=== PATIENT | female | born 1950 | race Caucasian/White ===

== ENCOUNTER 2016-06-28 11:04 | Inpatient (IN) | payer MEDICARE ==
[2016-06-28 11:18] VITALS: BMI 23.3
[2016-06-28] MEDS ORDERED: NS 1,000 ML IV ONE ×2 (11:19→12:10)
--- NOTE | 2016-06-28 11:25 | EDPRACDOC ---
- General Information Chief Complaint: Bleeding (Rectal &/or other) Stated Complaint: GI BLEED Time Seen by Provider: 06/28/16 11:19 Information Source: Patient Mode of Arrival: Car Home Medications: Home Medications Hum Insulin NPH/Reg Insulin Hm [Relion Novolin 70-30 Vial] 26 unit SQ BID Sertraline HCl [Zoloft] 150 mg PO DAILY 06/28/16 Simvastatin 40 mg PO DAILY 06/28/16 Allergies/Adverse Reactions: Allergies Allergy/AdvReac Type Severity Reaction Status Date / Time Penicillins Allergy Rash-Genera Verified 06/28/16 11:19 lized Sulfa (Sulfonamide Allergy Rash-Genera Verified 06/28/16 11:19 Antibiotics) lized - History of Present Illness Onset: TODAY HPI: PATIENT STATES SHE HAS BEEN PASSING DARK CLOTS RECTALLY SINCE THIS AM. GENERAL ABDOMINAL CRAMPING. NO FEVER. NEAR SYNCOPE. NAUSEA AND VOMITING. DENIES COFFEE GROUNDS Bleeding Duration: Reports: Since Onset Bleeding Description: Reports: After Bowel Movement Recent Use Of: Reports: None Relevant History: Reports: None Prehospital Care: Reports: IV Fluids Pain Severity: Moderate Amount of Blood: Reports: Tablespoon (s) Vomitus: Reports: None Stools: Reports: Other (GROSS BLOOD PER RECTUM) Associated Signs and Symptoms: Reports: Abdominal Pain, Faintness ED Past Medical History - History Reviewed Yes Nurses notes reviewed and agree except as marked Travel Outside of [place] in the Last 3 Months?: No - Patient Medical History Cardiac History: Reports: Hypercholesterolemia Systemic History: Reports: Diabetes Surgical History: Reports: Tonsillectomy/Adnoidectomy, Other (COMPLETE HYSTERECTOMY) - Social Medical History ETOH: None Substance Abuse: None Lives With: Family Lives In: Home EDM Review of Systems - Review of Systems ROS Negative Except as Marked: Yes All systems reviewed and were negative except as marked Constitutional: No Symptoms Reported. negative: Fever, Chills, Weakness, Fatigue, Loss of Appetite Eyes: No Symptoms Reported. negative: Redness, Blurred Vision, Double Vision, Discharge, Pain, Light Sensitive, Photophobia Ears: No Symptoms Reported. negative: Pain, Hearing Loss, Drainage, Ear Pulling Throat: No Symptoms Reported. negative: Pain, Swelling Nose: No Symptoms Reported. negative: Congestion, Bleeding, Discharge, Injection, Swelling, Deformity, Ecchymosis, Tender, Abrasion, Laceration Mouth: No Symptoms Reported. negative: Pain, Drooling Respiratory: No Symptoms Reported. negative: Cough, Brassy Cough, Barky Cough, Shortness of Breath, Wheezing, Hemoptysis Cardiovascular: No Symptoms Reported. negative: Chest Pain, Palpitations, Syncope, Edema, Orthopnea, PND, Skin Mottling, Cyanosis Gastrointestinal: Diarrhea, Pain, Other (BLOOD PER RECTUM). negative: Constipation, Formula Intolerance, Melena, Nausea, Vomiting Genitourinary: No Symptoms Reported. negative: Dysuria, Hematuria, Frequency, Discharge, Bleeding, Testicular Pain, Neurological: No Symptoms Reported. negative: Headache, Dizziness, Seizure, Numbness, Weakness, Speech Difficulty, Gait Difficulty Musculoskeletal: No Symptoms Reported. negative: Neck, Chestwall, Ribs, Back, Shoulder, Arm, Elbow, Forearm, Wrist, Hand, Pelvis, Hip, Femur, Knee, Leg, Ankle , Foot Integumentary: No Symptoms Reported. negative: Itching, Rash, Bruising, Wound Allergic/Immunologic: No Symptoms Reported. negative: Hives, Itching Hematologic: No Symptoms Reported. negative: Lymphadenopathy, Easy Bruising, Easy Bleeding Endocrine: No Symptoms Reported. negative: Weight Gain, Weight Loss Psychiatric: No Symptoms Reported. negative: Anxiety, Depression, Hallucinations, Insomnia, Suicidal - Physical Exam Constitutional: Alert (Awake), Distress (SEVERE) Oriented to: Time, Person, Place Last recorded Vital Signs: Last Vital Signs Temp 97.8 F 06/28/16 11:12 Pulse 108 06/28/16 11:12 Resp 18 06/28/16 11:12 BP 80/80 L 06/28/16 11:12 Pulse Ox 96 06/28/16 11:12 Oxygen Pulse Oxygen Saturation 96 O2 Device Room Air Oxygen Flow Rate Fraction of Inspired Oxygen ( FIO2) - HEENT Head: Normal ( normocephalic) Eye Exam: Pale Conjunctiva Oropharynx: Normal (Pharynx:Moist without exudate,Gums-no swelling) Tympanic Membrane: Normal ENT EAC: Normal TMJ: Normal Nose: No Symptoms Reported (septum midline) Neck: Normal (FROM, trachea at midline) - Respiratory/Cardiovascular Respiratory: Normal - CTA (BBS clear to auscultation without adventitious sounds ) Cardiovascular: Normal (RRR without murmur, gallop or rub) - GI Auscultation: Normal (NABS) Palpation: Normal (Soft,No rebound or guarding, non distended) Tenderness: Diffuse, Mild Alcazar's Sign: Negative Rectal Exam: Heme positive stool Stool: Gross Blood - Bladder: Normal - Musculoskeletal Back: Normal (Non-Tender) Extremities: Normal (Normal tone, Pulses 2+ No cyanosis or edema, FROM) - Integumentary Skin: Cool, Dry, Pale Lymphatics: Normal (no adenopathy) - Neurologic Memory Impaired: Normal Motor Function: Normal (Normal tone, Pulses 2+ No cyanosis or edema, FROM) Cranial Nerve: Normal (CN II-X11 intact sensation, strength 5/5) Cerebellar: Normal Mood Description: Normal Perception: Normal - Results 06/28/16 13:57 06/28/16 11:30 - EKG EKG #1 EKG Time: 11:31 -: Yes EKG interpreted by me Rate: bpm: 74 [place]: Normal Rhythm: NSR Block: None Hypertrophy: None ST: Normal - Departure Yes I personally saw and evaluated the patient. Disposition: Admit IP To This Hospital Condition: Fair Final Diagnosis: Acute blood loss anemia, Acute GI bleeding, Poorly controlled diabetes mellitus Hypotension Qualifiers: Hypotension type: orthostatic hypotension Qualified Code(s): I95.1 - Orthostatic hypotension Education/Counseling Given To: Patient Education/Counseling Given Regarding: Diagnosis, Treatment, Prognosis Referrals: Wan Peterson MD [Primary Care Provider] - One Week Decision to Admit Time: 14:32 Decision to admit date: 06/28/16 Decision to admit: from ED - Physician Consulted Hospitalist Time Called: 14:33 Provider Called: Arturo Catherine Time Technical Aid Returned Call: 14:33
[2016-06-28 11:39] LABS: AUTOMATED BASOPHIL 1.1 % (0-2); AUTOMATED EOSINOPHIL 0.6 % (0-5); AUTOMATED LYMPH 30.5 % (17-44); AUTOMATED MONOCYTE 6.6 % (3-10); AUTOMATED NEUTROPHIL 61.2 % (45-76); MPV 7.7 fL (7.4-10.4)
[2016-06-28 11:49] LABS: BLOOD UREA NITROGEN 20 MG/DL (7-17); CALCIUM 9.7 MG/DL (8.4-10.2); CALCULATED OSMOLALITY 281 MOs/Kg (270-290); CHLORIDE 104 mEq/L (98-107); CPK TOTAL WITH POSSIBLE MB 45 IU/L (30-134); SODIUM LEVEL 135 mEq/L (137-146); TOTAL PROTEIN 6.5 G/DL (6.3-8.2)
[2016-06-28 11:53] LABS: PARTIAL THROMB. TIME 20.9 SEC (22-35); PT-INR 1.1
--- NOTE | 2016-06-28 11:55 | DIRPT ---
CLINICAL DATA: Rectal bleeding, abdominal cramping, nausea, vomiting and syncope. EXAM: DG ABDOMEN ACUTE W/ 1V CHEST COMPARISON: None FINDINGS: Lungs show evidence of probable mild emphysematous disease. There is some scattered scarring at the lung bases. The heart size and mediastinal contours are normal. There is no evidence of pulmonary edema, consolidation, pneumothorax, nodule or pleural fluid. Moderate colonic stool, especially in the proximal colon. There are some scattered air-fluid levels which appear to be primarily in the colon. No evidence of small bowel dilatation. No evidence of free air. No abnormal calcifications. Bony structures show mild spondylosis of the lumbar spine. IMPRESSION: Moderate stool in the proximal colon. Scattered air-fluid levels in the colon may be consistent with enteritis. No evidence of small bowel obstruction or intraperitoneal free air. Electronically Signed By: Karthikeyan Pulido M.D. On: 06/28/2016 11:53
[2016-06-28 11:57] LABS: GLUCOSE 425 MG/DL (70-99)
[2016-06-28] MEDS ORDERED: Levofloxacin 750 mg/150 ml D5W 750 MG/150 ML RTU IV ONE (12:09)
[2016-06-28] MEDS ORDERED: Pharmacy Review for Metformin - IV Contrast Given SCH (13:00)
[2016-06-28] MEDS ORDERED: REGULAR INSULIN 100 UNITS/ML - 3 ML VIAL IV ONE (13:31)
--- NOTE | 2016-06-28 14:17 | DIRPT ---
CLINICAL DATA: Initial encounter for generalized abdominal pain and rectal bleeding today. EXAM: CT ABDOMEN AND PELVIS WITH CONTRAST TECHNIQUE: Multidetector CT imaging of the abdomen and pelvis was performed using the standard protocol following bolus administration of intravenous contrast. CONTRAST: Contrast 100 cc Isovue 370 COMPARISON: None. FINDINGS: Lower chest: Unremarkable. Hepatobiliary: Tiny hypervascular focus in the posterior hepatic dome is nonspecific. 6 mm hypo enhancing lesion is identified in the inferior right liver. There is no evidence for gallstones, gallbladder wall thickening, or pericholecystic fluid. No intrahepatic or extrahepatic biliary dilation. Pancreas: Main pancreatic duct is diffusely prominent but becomes distended up to 6 mm diameter in the head of the pancreas. No discrete pancreatic mass lesion by CT imaging. Spleen: No splenomegaly. No focal mass lesion. Adrenals/Urinary Tract: No adrenal nodule or mass. 11 mm well-defined low-density lesion right kidney is compatible with a tiny cyst. Left kidney unremarkable. No evidence for hydroureter. The urinary bladder appears normal for the degree of distention. Stomach/Bowel: Stomach is nondistended. No gastric wall thickening. No evidence of outlet obstruction. Duodenum is normally positioned as is the ligament of Treitz. No small bowel wall thickening. No small bowel dilatation. The terminal ileum is normal. The appendix is normal. No gross colonic mass. No colonic wall thickening. No substantial diverticular change. Vascular/Lymphatic: There is abdominal aortic atherosclerosis without aneurysm. There is no gastrohepatic or hepatoduodenal ligament lymphadenopathy. No intraperitoneal or retroperitoneal lymphadenopy. No pelvic sidewall lymphadenopathy. Reproductive: Uterus is surgically absent. There is no adnexal mass. Other: No intraperitoneal free fluid. Musculoskeletal: Bone windows reveal no worrisome lytic or sclerotic osseous lesions. IMPRESSION: 1. No acute findings in the abdomen or pelvis. Next number diffuse distention of the main pancreatic duct becomes dilated in the head of the pancreas. No evidence for pancreatic head mass and there is no associated biliary duct dilatation. MRI of the abdomen without and with contrast may prove helpful to further evaluate as clinically warranted. Alternatively, ERCP may provide additional insight. 2. Tiny hypervascular focus in the dome of the liver is nonspecific but is likely benign, especially in the absence of a cancer history. Electronically Signed By: Emil Teran M.D. On: 06/28/2016 14:15
--- NOTE | 2016-06-28 15:09 | HISTPHYS ---
- Chief Complaint Bright red blood per rectum - History of Present Illness Ms. Love is a pleasant 66-year-old white female with history of diabetes who presents emergency room with bright red blood per rectum. She says symptoms started earlier today she says she has never had any bleeding problems prior. Given the persistence the bleeding she decided to come the emergency room for evaluation. There is very minimal bleeding initially and her hemoglobin was 12.6. They elected to continue to monitor her in the emergency room and she started bleeding again. A repeat hemoglobin showed a drop down to 10.6. She denies abdominal pain. She states she had a colonoscopy 10 years ago which was normal and as noted above she has never had any other bleeding. She has not noted any black tarry stool. She does not take any blood thinners including aspirin, BC powders, or goody's powders. Given the persistence of her bleeding she will be admitted to the hospital for further evaluation management. - Medical History Cardiac History: Reports: Hypercholesterolemia Respiratory History: Reports: No Significant History GI/ History: Reports: No Significant History Musculoskeletal History: Reports: No Significant History Systemic History: Reports: Diabetes Neurological History: Reports: No Significant History Psychological History: Reports: No Significant History - Surgical History Reports: Tonsillectomy/Adnoidectomy, Other (COMPLETE HYSTERECTOMY) - Medictions/Allergies Allergies Penicillins Allergy (Verified 06/28/16 11:19) Rash-Generalized Sulfa (Sulfonamide Antibiotics) Allergy (Verified 06/28/16 11:19) Rash-Generalized Current Medication List: Reviewed Home Medications Hum Insulin NPH/Reg Insulin Hm [Relion Novolin 70-30 Vial] 26 unit SQ BID Sertraline HCl [Zoloft] 150 mg PO DAILY 06/28/16 Simvastatin 40 mg PO DAILY 06/28/16 - Family History Reports: Hypertension, Diabetes, Cardiac Disorders - Social History Lives: Alone Smoking Status: Heavy tobacco smoker (5 or more cigarettes/day or daily pipe/ cigar) Social History: Denies: Alcohol Use - Review of Systems Yes All systems reviewed and were negative except as marked Constitutional: No Symptoms Reported. negative: Fever, Chills, Weakness, Fatigue, Loss of Appetite - Eyes No Symptoms Reported. negative: Blurred Vision, Double Vision, Discharge, Pain , Photophobia - Ears No Symptoms Reported. negative: Drainage, Hearing Loss, Pain - Nose No Symptoms Reported. negative: Abrasion, Bleeding, Congestion - Mouth Mouth: No Symptoms Reported. negative: Pain, Drooling, Denture - Throat/Neck No Symptoms Reported. negative: Pain, Swelling, Hoarseness, Snoring, Thyroid enlargement - Respiratory No Symptoms Reported. negative: Barky Cough, Brassy Cough, Shortness of Breath , Wheezing, Sputum - Cardiovascular No Symptoms Reported. negative: Chest Pain, Orthopnea, Palpitations - Gastrointestinal Gastrointestinal: Hematochezia. negative: Nausea, Vomiting, Abdominal Pain, Diarrhea, Melena - Genitourinary Genitourinary: No Symptoms Reported. negative: Bleeding, Dysuria, Discharge - Neurological No Symptoms Reported. negative: Dizziness, Gait Difficulty, Speech Difficulty, Weakness, Vertigo - Musculoskeletal Musculoskeletal:: No Symptoms Reported. negative: Chronic low back pain, Arthritis, Bursitis, Stiffness, Gout - Integumentary No Symptoms Reported. negative: Bruising, Rash, Wound - Allergic/Immunologic No Symptoms Reported. negative: Hives, Itching - Hematologic Easy Bleeding - Endocrine No Symptoms Reported. negative: Weight Gain, Weight Loss, Excessive Thirst, Excessive Hunger, Heat Intolerance, Cold Intolerance - Psychiatric No Symptoms Reported. negative: Anxiety, Hallucinations - Physical Exam Constitutional: No apparent distress, Alert (Awake), Well nourished, Well appearing Oriented to: Time, Person, Place Exam: Last Vital Signs Temp 97.8 F 06/28/16 11:12 Pulse 76 06/28/16 14:52 Resp 18 06/28/16 13:30 BP 125/63 06/28/16 14:52 Pulse Ox 95 06/28/16 14:52 Intake & Output 06/27/16 06/28/16 06/28/16 23:59 07:59 15:59 Patient's weight 67.585 kg - HEENT Head: Normal ( normocephalic) Eye: Normal Oropharynx: Normal (Pharynx:Moist without exudate,Gums-no swelling) Tympanic Membrane: Normal ENT EAC: Normal TMJ: Normal Nose: No Symptoms Reported (septum midline) - Respiratory/Cardiovascular Respiratory: Normal - CTA (BBS clear to auscultation without adventitious sounds ) Cardiovascular: Normal - GI Auscultation: Normal (NABS) Palpation: Normal (Soft,No rebound or guarding, non distended) Tenderness: Mild, LLQ Rectal Exam: Heme positive stool Stool: Gross Blood - Musculoskeletal Back: Normal (Non-Tender). negative: Abrasion Extremities: Normal (Normal tone, Pulses 2+ No cyanosis or edema, FROM), Femoral Pulse, Pedal Pulse. negative: Calf Tenderness, Edema, Pedal Edema - Integumentary Skin: Warm, Cool, Dry, Pale Lymphatics: Normal (no adenopathy) - Neurologic Memory Impaired: Normal Motor Function: Normal Cranial Nerve: Normal Cerebellar: Normal Mood Description: Normal Thought: Coherent Perception: Normal - Focused CV Perfusion Exam Vital Signs: Last Vital Signs Temp 97.8 F 06/28/16 11:12 Pulse 76 06/28/16 14:52 Resp 18 06/28/16 13:30 BP 125/63 06/28/16 14:52 Pulse Ox 95 06/28/16 14:52 - Lab Results Laboratory Results - last 24 hr 06/28/16 06/28/16 06/28/16 11:30 11:30 11:30 WBC 9.9 RBC 4.34 Hgb 12.6 Hct 37.9 MCV 88 MCH 29.1 MCHC 33.3 RDW 13.9 Plt Count 373 MPV 7.7 Neut % (Auto) 61.2 Lymph % (Auto) 30.5 [place] % (Auto) 6.6 Eos % (Auto) 0.6 Baso % (Auto) 1.1 Absolute Neuts (auto) 6.04 Absolute Lymphs (auto) 2.97 PT 11.0 INR 1.1 APTT 20.9 L Sodium 135 L Potassium 4.6 Chloride 104 Carbon Dioxide 21 L Anion Gap 15 BUN 20 H Creatinine 0.80 Estimated GFR (MDRD) > 60 Glucose 425 H* Calculated Osmolality 281 Calcium 9.7 Total Bilirubin 0.5 AST 14 ALT 25 Alkaline Phosphatase 83 Creatine Kinase 45 Troponin I < 0.01 Total Protein 6.5 Albumin 4.0 Blood Type Antibody Screen 06/28/16 06/28/16 11:30 13:57 WBC RBC Hgb 10.6 L D Hct 31.7 L MCV MCH MCHC RDW Plt Count MPV Neut % (Auto) Lymph % (Auto) [place] % (Auto) Eos % (Auto) Baso % (Auto) Absolute Neuts (auto) Absolute Lymphs (auto) PT INR APTT Sodium Potassium Chloride Carbon Dioxide Anion Gap BUN Creatinine Estimated GFR (MDRD) Glucose Calculated Osmolality Calcium Total Bilirubin AST ALT Alkaline Phosphatase Creatine Kinase Troponin I Total Protein Albumin Blood Type O POSITIVE Antibody Screen Negative - Assessment (1) Acute GI bleeding K92.2 - GASTROINTESTINAL HEMORRHAGE, UNSPECIFIED Acute Present on Admission: Yes Moderate. Suspect diverticular in nature likely will stop on its own. She is not on any anticoagulants. Continue to follow H&H and transfuse if needed. Will have GI see in consultation. If hemoglobin stabilizes and bleeding stops likely can do evaluation as outpatient (2) Acute blood loss anemia D62 - ACUTE POSTHEMORRHAGIC ANEMIA Acute Present on Admission: Yes Mild so far but suspect will drift down further. No need for transfusion as yet but will do frequent H&Hs and monitor. (3) Hypotension I95.9 - HYPOTENSION, UNSPECIFIED Acute Present on Admission: Yes Qualifiers: Hypotension type: orthostatic hypotension Qualified Code(s): I95.1 - Orthostatic hypotension This has improved with IV hydration the emergency room. Likely vagal response due to anemia and bleeding. (4) Poorly controlled diabetes mellitus E11.65 - TYPE 2 DIABETES MELLITUS WITH HYPERGLYCEMIA Acute Present on Admission: Yes Blood sugars are significantly elevated here in the emergency room. Continue insulin and titrate as needed. Moderate dose sliding scale. Stressed dietary compliance (5) Depression F32.9 - MAJOR DEPRESSIVE DISORDER, SINGLE EPISODE, UNSPECIFIED Acute Present on Admission: Yes Qualifiers: Depression Type: unspecified Qualified Code(s): F32.9 - Major depressive disorder, single episode, unspecified Chronic. Continue home medications. Case Care Discussed with: Patient, Family
[2016-06-28] MEDS ORDERED: MAGNESIUM HYDROXIDE 30 ML BOTTLE PO PRN (15:10)
[2016-06-28] MEDS ORDERED: Docusate Sodium 100 MG CAP PO PRN (15:10)
[2016-06-28] MEDS ORDERED: ONDANSETRON HCL 4 MG/2 ML VIAL IV PRN (15:10)
[2016-06-28] MEDS ORDERED: GLUCAGON 1 MG VIAL SQ PRN (15:10)
[2016-06-28] MEDS ORDERED: ACETAMINOPHEN 325 MG/TAB TABLET PO PRN (15:10)
[2016-06-28] MEDS ORDERED: GLUCOSE (ORAL GEL) 15 GM TUBE PO PRN (15:10)
[2016-06-28] MEDS ORDERED: INSULIN REGULAR SQ SCH (16:00)
[2016-06-28] MEDS ORDERED: INSULIN ISOPHANE SQ SCH (16:00)
[2016-06-28] MEDS: NS/KCl 20 mEq 1,000 ML IV SCH (16:22)
[2016-06-28] MEDS: NICOTINE 21 MG PATCH TOP SCH (16:22)
[2016-06-28] MEDS ORDERED: Vaccine Screening Complete SCH (17:00)
[2016-06-28] MEDS: INSULIN REGULAR SQ SCH (17:42)
[2016-06-28] MEDS: INSULIN ISOPHANE SQ SCH (17:42)
[2016-06-28] MEDS: REGULAR INSULIN 100 UNITS/ML - 3 ML VIAL SQ SCH ×2 (17:47→21:09)
[2016-06-28] MEDS ORDERED: REG INSULIN SQ SCH (21:00)
[2016-06-28] MEDS ORDERED: [UNRECOGNIZED DRUG - OTHER] SQ SCH (21:00)
[2016-06-28] MEDS ORDERED: HUM INSULIN NPH SQ SCH (21:00)
[2016-06-28] MEDS: DEXTROSE 25 GM/50 ML PFS IV PRN (22:46)
[2016-06-29] MEDS: NS/KCl 20 mEq 1,000 ML IV SCH ×3 (01:00→20:31)
[2016-06-29 06:19] LABS: MPV 7.9 fL (7.4-10.4)
[2016-06-29] MEDS: INSULIN ISOPHANE SQ SCH ×3 (06:24→17:49)
[2016-06-29] MEDS: INSULIN REGULAR SQ SCH ×3 (06:24→17:49)
[2016-06-29] MEDS: REGULAR INSULIN 100 UNITS/ML - 3 ML VIAL SQ SCH ×4 (06:24→20:53)
[2016-06-29 06:43] LABS: BLOOD UREA NITROGEN 9 MG/DL (7-17); CALCIUM 9.3 MG/DL (8.4-10.2); CALCULATED OSMOLALITY 272 MOs/Kg (270-290); CHLORIDE 108 mEq/L (98-107); GLUCOSE 90 MG/DL (70-99); SODIUM LEVEL 142 mEq/L (137-146)
[2016-06-29] MEDS: SERTRALINE HCL 100 MG TAB PO SCH (09:16)
--- NOTE | 2016-06-29 13:09 | PCM.CONSGI ---
Consult Date: 06/29/16 Consult Reason: GI Bleed - History of Present Illness 66-year-old white female with painless hematochezia. This was sudden in onset and started morning of admission. Her hemoglobin was 12.6. They elected to continue to monitor her in the emergency room and she started bleeding again. A repeat hemoglobin showed a drop down to 10.6. She denies abdominal pain. She states she had a colonoscopy 10 years ago which was normal and as noted above she has never had any other bleeding. She has not noted any black tarry stool. She does not take any blood thinners including aspirin, BC powders, or goody's powders. She has been passing clots. Over the last 12 hours, she did not have any further bleeding. She underwent CT scan of the abdomen and pelvis which was unremarkable except for minimal pancreatic ductal dilatation. Patient wants to get the colonoscopy performed while she is inpatient. - Past Medical History Cardiac History: Reports: Hypercholesterolemia Systemic History: Reports: Diabetes Psychological History: Reports: Depression. Denies: Alcoholism - Surgical History Past Surgical History: Reports: T&A - Procedure History Procedure History: Reports: Colonoscopy (2005) - Family History Family History: Reports: Diabetes, Cardiac Disorders, Hypertension - Allergies Allergies Penicillins Allergy (Verified 06/28/16 11:19) Rash-Generalized Sulfa (Sulfonamide Antibiotics) Allergy (Verified 06/28/16 11:19) Rash-Generalized - Medications Home Medications Hum Insulin NPH/Reg Insulin Hm [Relion Novolin 70-30 Vial] 26 unit SQ BID Sertraline HCl [Zoloft] 150 mg PO DAILY 06/28/16 Simvastatin 40 mg PO DAILY 06/28/16 - Social History Lives: Alone Smoking Status: Heavy tobacco smoker (5 or more cigarettes/day or daily pipe/ cigar) Social History: Denies: Alcohol Use, Cocaine Use - Review of Systems Constitutional: Other (No night sweats.). negative: Chills, Fever, Weight loss (Recent) Mouth: negative: Pain Cardiovascular: negative: Chest Pain, Orthopnea, PND Gastrointestinal: Other (No jaundice, dark urine or pale stools.) Genitourinary: Other (Denies polyuria.). negative: Dysuria Neurological: Other (Denies loss of consciousness.). negative: Seizure Allergic/Immunologic: negative: Hives, Itching Hematologic: negative: Easy Bruising - Exam Vital Signs: Temperature: 97.8 F (06/29/16 06:00) HR: 77 (06/29/16 06:00) RR: 18 (06/29/16 06:00) BP: 148/68 (06/29/16 06:00) Pulse Ox: 96 (06/29/16 06:00) General: Alert, Oriented x3, Cooperative, No acute distress HEENT: Normal, Other (No Jaundice). negative: Pallor Cardiovascular: Normal S1, Normal S2, Other (No S3 or S4.). negative: No murmurs Gastrointestinal: Soft, Bowel Sounds (normal), Other (No ascites.). negative: Tender, Guarding, Rigid, Hepatosplenomegaly Extremities: Normal pulses. negative: Swelling, Edema Skin: Warm,Dry and Intact Neurological: Normal speech, Other (No focal neurologic deficits.) Psych/Mental Status: Normal Affect, Cooperative - Labs Result Diagrams: 06/29/16 06:00 06/29/16 06:00 Exam(s): [id number] CT/CT ABD-PELV W/IV CM CLINICAL DATA: Initial encounter for generalized abdominal pain and rectal bleeding today. EXAM: CT ABDOMEN AND PELVIS WITH CONTRAST TECHNIQUE: Multidetector CT imaging of the abdomen and pelvis was performed using the standard protocol following bolus administration of intravenous contrast. CONTRAST: Contrast 100 cc Isovue 370 COMPARISON: None. FINDINGS: Lower chest: Unremarkable. Hepatobiliary: Tiny hypervascular focus in the posterior hepatic dome is nonspecific. 6 mm hypo enhancing lesion is identified in the inferior right liver. There is no evidence for gallstones, gallbladder wall thickening, or pericholecystic fluid. No intrahepatic or extrahepatic biliary dilation. Pancreas: Main pancreatic duct is diffusely prominent but becomes distended up to 6 mm diameter in the head of the pancreas. No discrete pancreatic mass lesion by CT imaging. Spleen: No splenomegaly. No focal mass lesion. Adrenals/Urinary Tract: No adrenal nodule or mass. 11 mm well-defined low-density lesion right kidney is compatible with a tiny cyst. Left kidney unremarkable. No evidence for hydroureter. The urinary bladder appears normal for the degree of distention. Stomach/Bowel: Stomach is nondistended. No gastric wall thickening. No evidence of outlet obstruction. Duodenum is normally positioned as is the ligament of Treitz. No small bowel wall thickening. No small bowel dilatation. The terminal ileum is normal. The appendix is normal. No gross colonic mass. No colonic wall thickening. No substantial diverticular change. Vascular/Lymphatic: There is abdominal aortic atherosclerosis without aneurysm. There is no gastrohepatic or hepatoduodenal ligament lymphadenopathy. No intraperitoneal or retroperitoneal lymphadenopy. No pelvic sidewall lymphadenopathy. Reproductive: Uterus is surgically absent. There is no adnexal mass. Other: No intraperitoneal free fluid. Musculoskeletal: Bone windows reveal no worrisome lytic or sclerotic osseous lesions. IMPRESSION: 1. No acute findings in the abdomen or pelvis. Next number diffuse distention of the main pancreatic duct becomes dilated in the head of the pancreas. No evidence for pancreatic head mass and there is no associated biliary duct dilatation. MRI of the abdomen without and with contrast may prove helpful to further evaluate as clinically warranted. Alternatively, ERCP may provide additional insight. 2. Tiny hypervascular focus in the dome of the liver is nonspecific but is likely benign, especially in the absence of a cancer history. - Assessment and Plan (1) Abnormal CT of the abdomen Acute R93.5 - ABN FINDINGS ON DX IMAGING OF ABD REGIONS, INC RETROPERITON (2) Acute GI bleeding Acute K92.2 - GASTROINTESTINAL HEMORRHAGE, UNSPECIFIED (3) Depression Acute F32.9 - MAJOR DEPRESSIVE DISORDER, SINGLE EPISODE, UNSPECIFIED unspecified F32.9 - Major depressive disorder, single episode, unspecified (4) Poorly controlled diabetes mellitus Acute E11.65 - TYPE 2 DIABETES MELLITUS WITH HYPERGLYCEMIA Recommendations: 1. continue to monitor hemoglobin hematocrit periodically and transfuse if needed. 2. Proceed with colonoscopy in a.m.. I have discussed in detail the risks and benefits with the patient and patient's friends. They wish to proceed tomorrow. 3. CT scan of the abdomen and pelvis will be reviewed. 4. Check lipase, CA 19-9 and a CEA level 5. She may need an MRI of the pancreas or MRCP as an outpatient.
--- NOTE | 2016-06-29 15:58 | GENMEDPROG ---
Chief Complaint: Feels well with no complaints. No further bleeding. Hopes to go home today but waiting on Dr. Mancilla evaluation Notes Reviewed: Yes Events from last night noted and discussed with Clinical Staff Current Medication List: Reviewed Currently: Reports: Cough. Denies: Wheezing, KEYES, SOB - Physical Examination Vital Signs and I&O: Last Vital Signs Temp 98.3 F 06/29/16 14:03 Pulse 77 06/29/16 14:03 Resp 18 06/29/16 14:03 BP 149/66 06/29/16 14:03 Pulse Ox 95 06/29/16 14:03 Oxygen Pulse Oxygen Saturation 95 O2 Device Room Air Oxygen Flow Rate Fraction of Inspired Oxygen ( FIO2) Intake & Output 06/26/16 06/27/16 06/28/16 06/29/16 23:59 23:59 23:59 23:59 Intake Total 2407 2650 Output Total 2050 Balance 2407 600 Patient's weight 68.152 kg General: Alert, Oriented x3, Cooperative, No acute distress, Well appearing, Well nourished HEENT: Normal, PERRLA, EOMI, Anicteric Sclera Neck: Non-tender, Full range of motion, Normal Trachea alignment, Normal inspection. negative: JVD Lymphatics: Normal. negative: Adenopathy Respiratory: Normal - CTA Cardiovascular: Regular rate and rhythm, No Gallops,Rubs/Murmurs GI: Normal bowel sounds, Soft, Non tender, No hepatospenomegaly Extremities/Musculoskeletal: Normal pulses. negative: Swelling, Edema Skin: Warm,Dry and Intact, No rashes, No breakdown, No significant lesion Neurological: Normal speech, Strength at 5/5 X4 ext, Normal tone Psych/Mental Status: Appropriate, Normal Affect, Cooperative Lab/DI/Studies Reviewed: Laboratory Results - last 24 hr 06/28/16 06/28/16 06/28/16 17:41 20:12 22:38 WBC RBC Hgb 9.6 L Hct 28.9 L MCV MCH MCHC RDW Plt Count MPV Sodium Potassium Chloride Carbon Dioxide Anion Gap BUN Creatinine Estimated GFR (MDRD) Glucose POC Capillary Glucose 217 H 33 L* Calculated Osmolality Calcium 06/28/16 06/28/16 06/28/16 22:39 22:50 23:10 WBC RBC Hgb Hct MCV MCH MCHC RDW Plt Count MPV Sodium Potassium Chloride Carbon Dioxide Anion Gap BUN Creatinine Estimated GFR (MDRD) Glucose 124 H POC Capillary Glucose 31 L* 107 H Calculated Osmolality Calcium 06/29/16 06/29/16 06/29/16 00:58 05:39 06:00 WBC RBC Hgb Hct MCV MCH MCHC RDW Plt Count MPV Sodium 142 D Potassium 4.1 Chloride 108 H Carbon Dioxide 26 Anion Gap 12 BUN 9 Creatinine 0.70 Estimated GFR (MDRD) > 60 Glucose 90 POC Capillary Glucose 106 H 69 L Calculated Osmolality 272 Calcium 9.3 06/29/16 06/29/16 06/29/16 06:00 06:03 11:31 WBC 7.0 RBC 3.45 L Hgb 10.3 L Hct 30.3 L MCV 88 MCH 29.7 MCHC 33.9 RDW 14.2 Plt Count 248 MPV 7.9 Sodium Potassium Chloride Carbon Dioxide Anion Gap BUN Creatinine Estimated GFR (MDRD) Glucose POC Capillary Glucose 112 H 308 H Calculated Osmolality Calcium - Assessment (1) Acute GI bleeding Acute K92.2 - GASTROINTESTINAL HEMORRHAGE, UNSPECIFIED Comment/Plan: Hemoglobin stable. No further bleeding. GI to see in consultation. Possibly colonoscopy tomorrow morning verses outpatient. (2) Acute blood loss anemia Acute D62 - ACUTE POSTHEMORRHAGIC ANEMIA Comment/Plan: Stable approximately 10. No need for transfusion. Monitor for further bleeding. (3) Hypotension Acute I95.9 - HYPOTENSION, UNSPECIFIED Qualifiers: Hypotension type: orthostatic hypotension Qualified Code(s): I95.1 - Orthostatic hypotension Comment/Plan: Stable since admission. (4) Poorly controlled diabetes mellitus Acute E11.65 - TYPE 2 DIABETES MELLITUS WITH HYPERGLYCEMIA Comment/Plan: Improving. Continue sliding scale insulin and stress dietary compliance. (5) Depression Acute F32.9 - MAJOR DEPRESSIVE DISORDER, SINGLE EPISODE, UNSPECIFIED Qualifiers: Depression Type: unspecified Qualified Code(s): F32.9 - Major depressive disorder, single episode, unspecified Comment/Plan: Chronic. Continue home medications. Case Care Discussed with: Patient, Consultants, Nursing Staff, Physical Therapy , Resource Management, Respiratory Therapy, Public Accountant
[2016-06-29] MEDS: NICOTINE 21 MG PATCH TOP SCH (16:13)
[2016-06-29] MEDS ORDERED: MOVIPREP PO SCH (18:00)
[2016-06-29] MEDS ORDERED: SIMVASTATIN 40 MG TAB PO SCH (18:00)
[2016-06-29] MEDS: DEXTROSE 25 GM/50 ML PFS IV PRN (20:31)
[2016-06-29] MEDS: D5W/NS/KCl 20 mEq 1,000 ML IV SCH (21:28)
[2016-06-30] MEDS: INSULIN REGULAR SQ SCH ×2 (06:17→17:27)
[2016-06-30] MEDS: D5W/NS/KCl 20 mEq 1,000 ML IV SCH ×2 (06:17→17:12)
[2016-06-30] MEDS: INSULIN ISOPHANE SQ SCH ×2 (06:17→17:27)
[2016-06-30] MEDS: REGULAR INSULIN 100 UNITS/ML - 3 ML VIAL SQ SCH ×3 (06:18→17:28)
[2016-06-30 08:07] LABS: AUTOMATED BASOPHIL 0.7 % (0-2); AUTOMATED EOSINOPHIL 2.1 % (0-5); AUTOMATED LYMPH 27.5 % (17-44); AUTOMATED MONOCYTE 6.4 % (3-10); AUTOMATED NEUTROPHIL 63.3 % (45-76); MPV 7.2 fL (7.4-10.4)
[2016-06-30] MEDS: SERTRALINE HCL 100 MG TAB PO SCH (09:38)
[2016-06-30] MEDS ORDERED: NS 1,000 ML IV ONE (12:35)
[2016-06-30] MEDS ORDERED: MIDAZOLAM 5 MG/5 ML VIAL ONE (12:43)
[2016-06-30] MEDS ORDERED: FENTANYL 100 MCG/2 ML VIAL ONE (12:43)
[2016-06-30] MEDS ORDERED: ONDANSETRON HCL 4 MG/2 ML VIAL ONE (12:43)
[2016-06-30] MEDS: NICOTINE 21 MG PATCH TOP SCH (14:43)
--- NOTE | 2016-06-30 15:12 | HIMOPRPT ---
DATE OF PROCEDURE: 06/30/16 PROCEDURE: Colonoscopy with AVM ablation, polypectomy followed by endoscopic clipping. INDICATIONS: acute GI bleeding CONSENT: The benefits, risks, and alternatives to the procedure were discussed. Informed consent was obtained from the patient. The risks including the risks of bleeding, perforation, rarely missing colonic neoplasms were discussed. The benefits also discussed. The patient wishes to proceed. PREPARATION: The patient got split-dose moviprep for preparation. MEDICATIONS: Fentanyl 50 mcg and Versed 7 mg. Zofran 4 mg as adjunct to sedation. DESCRIPTION OF PROCEDURE: The patient was placed in the left lateral position. The rectal examination was normal. Rectal sweep was performed. The Olympus video pediatric PCF-H180 colonoscope was passed with ease to the cecum. Cecum was confirmed by appendiceal orifice and ileocecal valve. Photodocumentation of the cecum was obtained. Thereafter, 1-2 cm of terminal ileum was intubated. Retroflexed exam was performed in the ascending colon and rectum. The quality of preparation was good except in the right side of the colon with there was adherent and some solid stool as well. Aggressive suctioning and aspiration was performed. The patient also turned from side to the back then again to the side several times to have as much visualization colonic mucosa as possible. Approximately 85-90 % of colonic mucosa was visualized satisfactorily. The withdrawal time was 20 minutes, excluding time for aspiration and flushing. FINDINGS: SURFACE AND MUCOSA: Normal. The vascular pattern was well preserved throughout the colon. The terminal mucosa was normal. MASSES AND POLYPS: 6 mm small sessile polyp was noted in the proximal sigmoid colon 40 cm from the anal verge. This was removed by snare cautery polypectomy. Another 1 cm polyp on a short thick pedicle was noted 35 cm from the anal verge in the region of proximal sigmoid colon. This was removed by snare cautery polypectomy. Since it had broad base, a single endoscopic hemostatic clip was applied to the post polypectomy site to decrease the incidence of post polypectomy bleeding. Photodocumentation of the polyp and post polypectomy site was obtained. There were no other masses or polyps visualized. LUMEN AND VASCULAR: Scattered diverticula throughout the colon more prominently in the ascending colon. There were few diverticula also visualized in the transverse, descending and the sigmoid colon. There was no active bleeding. A single 6 mm arteriovenous malformation was noted in the cecum. There was no active bleeding. Photo documentation obtained. This was ablated using a 7 Sami BICAP at 25 w setting. Postprocedure photo documentation was also obtained. Patient tolerated the procedure well there were no immediate complications. The retroflexed examination of the rectum did reveal moderate internal hemorrhoids. SURGICAL FINDINGS: There were no surgical findings. IMPRESSION: 1. Colonic polyps status post polypectomy followed by endoscopic clipping. 2. Mild Pancolonic diverticulosis predominantly in the ascending colon. Patient likely had a diverticular bleed. There was no active bleeding. 3. 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 4. Internal hemorrhoids PLAN: 1. Watch for any delayed postpolypectomy complications including bleeding. The patient will promptly get in touch with us in case of any problems. All contact numbers were given. 2. Follow up in the GI clinic in 3-4 weeks, earlier in case of any problems. 3. Avoid NSAIDS. 4. Follow biopsies. Will determine further course of action depending upon the above biopsy results. Discussed the above with the patient's family. Endoscopic pictures were shown to patient. I have paged Dr. Catherine.
[2016-06-30 15:53] VITALS: BP 116/62; PULSE 73; TEMP 98.9
--- NOTE | 2016-06-30 17:10 | PCM.DCS92 ---
- Final/Secondary Discharge Diagnosis (1) Acute GI bleeding Acute K92.2 - GASTROINTESTINAL HEMORRHAGE, UNSPECIFIED Present on Admission: Yes Comment: Hemoglobin stable. No further bleeding. Most likely diverticular bleed. (2) Acute blood loss anemia Acute D62 - ACUTE POSTHEMORRHAGIC ANEMIA Present on Admission: Yes Comment: Stable approximately 10. No need for transfusion. Monitor for further bleeding. (3) Poorly controlled diabetes mellitus Acute E11.65 - TYPE 2 DIABETES MELLITUS WITH HYPERGLYCEMIA Present on Admission: Yes Comment: Improving. Continue sliding scale insulin and stress dietary compliance. (4) Nicotine addiction Acute F17.200 - NICOTINE DEPENDENCE, UNSPECIFIED, UNCOMPLICATED Present on Admission: Yes cigarettes unspecified nicotine-induced disorder F17.219 - Nicotine dependence, cigarettes, with unspecified nicotine-induced disorders Plan/Goal/Comment: Advised to quit. Discharge Disposition: Home Discharge Condition: Improved Cognitive Discharge Status: Unimpaired Fuctional Discharge Status: Independent Physician Follow up/Referrals: Wan Peterson MD [Primary Care Provider] - One Week Rajesh Mancilla MD [Staff Provider No Admit] - Two Weeks New Prescriptions: Omeprazole 40 mg PO DAILY #30 capsule. Keisha W-Ca,Fe,FA(<1Mg) [] 1 each PO DAILY #60 tablet O2 Device: Room Air Diet at Discharge: Heart Healthy, Low Salt, Diabetic, 2200 Calorie, High Fiber Activity: As Tolerated Call Office For: Worsening Symptoms, Fever over 101 F Discontinue use of:: Alcohol, All Illegal Substances, All Types of Tobacco - DC Summary Notes Hospital Course Note:: Discharge summary on patient named HA PEREZ admitted to [facility] on 06/28/16 by rAturo Catherine MD. Date of discharge is [] . Patient has initially presented to emergency room on June 28 for evaluation of bright red blood per rectum. Patient reported that bleeding started early on that day, she denies any abdominal pain nausea or vomiting. Please refer to the admission for further details. Patient was admitted to general medical floor. Her hemoglobin was monitored closely and remained stable between 10 and 11. Patient was seen evaluated by a diet aid Dr. Mancilla, CT scan of abdomen and pelvis showed no acute findings in abdomen or pelvis. Diffuse distention of the main pancreatic duct in the head of pancreas but no evidence of pancreatic head mass and there is no associated biliary duct dilatation. Based on the CT scan of abdomen and pelvis MRI of abdomen was recommended. On June 30 patient has undergone colonoscopy which showed mild pancolonic diverticulosis mainly in ascending colon, colonic polyp status post polypectomy , small nonbleeding AVM and internal hemorrhoids. After procedure patient diet was resumed and she has tolerated very well. Her activity level was advanced and by the time of discharge was able to ambulate freely with no assistance. During hospital stay patient has remained hemodynamically stable, her blood sugar remained under good control with no episodes of hypoglycemia. On June 30 patient was cleared for discharge by Dr. Mancilla and in clinically stable improved condition she has been discharged home to the care of family and her PCP.. Total Time: 40 min . Code: 17621 (<30 min.) - Physical Exam Vital Signs: Last Vital Signs Temp 98.9 F 06/30/16 15:52 Pulse 73 06/30/16 15:52 Resp 20 06/30/16 15:52 BP 116/62 06/30/16 15:52 Pulse Ox 97 06/30/16 15:52 Oxygen Pulse Oxygen Saturation 97 O2 Device Room Air Oxygen Flow Rate 2 Fraction of Inspired Oxygen ( FIO2) Constitutional: No apparent distress, Alert (Awake), Well nourished, Well appearing Oriented to: Time, Person, Place - HEENT Head: Normal ( normocephalic) Eye: Normal Oropharynx: Normal (Pharynx:Moist without exudate,Gums-no swelling) Tympanic Membrane: Normal ENT EAC: Normal TMJ: Normal Nose: No Symptoms Reported (septum midline) - Respiratory/Cardiovascular Respiratory: Normal - CTA Cardiovascular: Normal, Systolic murmur - GI Auscultation: Normal (NABS) Palpation: Normal (Soft,No rebound or guarding, non distended) Tenderness: Non tender, LLQ Rectal Exam: Heme positive stool Stool: Gross Blood - Exam Deferred: Yes - Musculoskeletal Back: Normal (Non-Tender). negative: Abrasion Extremities: Normal (Normal tone, Pulses 2+ No cyanosis or edema, FROM), Femoral Pulse, Pedal Pulse. negative: Calf Tenderness, Edema, Pedal Edema - Integumentary Skin: Normal, Warm, Dry Lymphatics: Normal. negative: Adenopathy - Neurologic Memory Impaired: Normal Motor Function: Normal Cranial Nerve: Normal Cerebellar: Normal Mood Description: Normal, Anxious Thought: Coherent Perception: Normal - Other Exam Other Exam Findings: Allergies Penicillins Allergy (Verified 06/28/16 11:19) Rash-Generalized Sulfa (Sulfonamide Antibiotics) Allergy (Verified 06/28/16 11:19) Rash-Generalized Last Vital Signs Temp 98.9 F 06/30/16 15:52 Pulse 73 06/30/16 15:52 Resp 20 06/30/16 15:52 BP 116/62 06/30/16 15:52 Pulse Ox 97 06/30/16 15:52 Discharge Home Medication List Hum Insulin NPH/Reg Insulin Hm [Relion Novolin 70-30 Vial] 26 unit SQ BID [History Confirmed 06/28/16] Sertraline HCl [Zoloft] 150 mg PO DAILY 06/28/16 [History Confirmed 06/28/16] Simvastatin 40 mg PO DAILY 06/28/16 [History Confirmed 06/28/16] Omeprazole 40 mg PO DAILY #30 capsule. 06/30/16 [Rx] Vits W-Ca,Fe,FA(<1Mg) [] 1 each PO DAILY #60 tablet 06/30/16 [ Rx] New Discharge Medications (Rx) Omeprazole 40 mg PO DAILY #30 capsule. 06/30/16 [Rx] Vits W-Ca,Fe,FA(<1Mg) [] 1 each PO DAILY #60 tablet 06/30/16 [ Rx] Home Medications Hum Insulin NPH/Reg Insulin Hm [Relion Novolin 70-30 Vial] 26 unit SQ BID Sertraline HCl [Zoloft] 150 mg PO DAILY 06/28/16 Simvastatin 40 mg PO DAILY 06/28/16 Omeprazole 40 mg PO DAILY #30 capsule. 06/30/16 Vits W-Ca,Fe,FA(<1Mg) [] 1 each PO DAILY #60 tablet 06/30/16 Abnormal Lab Results 06/29/16 06/29/16 06/29/16 20:21 20:30 20:45 RBC Hgb Hct MCHC MPV Glucose 166 H POC Capillary Glucose 55 L 47 L* 06/29/16 06/29/16 06/30/16 20:55 20:56 00:53 RBC Hgb Hct MCHC MPV Glucose POC Capillary Glucose 196 H 209 H 161 H 06/30/16 06/30/16 06/30/16 06:15 07:58 11:26 RBC 3.45 L Hgb 10.0 L Hct 30.5 L MCHC 32.9 L MPV 7.2 L Glucose POC Capillary Glucose 275 H 318 H 06/30/16 07:58 06/29/16 20:[address] of the abdomen (Acute) R93.5 Acute GI bleeding (Acute) K92.2 Hemoglobin stable. No further bleeding. GI to see in consultation. Possibly colonoscopy tomorrow morning verses outpatient. Acute blood loss anemia (Acute) D62 Stable approximately 10. No need for transfusion. Monitor for further bleeding. Depression (Acute) F32.9 Chronic. Continue home medications. Hypotension (Acute) I95.9 Stable since admission. Poorly controlled diabetes mellitus (Acute) E11.65 Improving. Continue sliding scale insulin and stress dietary compliance. Patient Name: HA PEREZ LOC: ED : 1950 AGE: 66 Order Date:06/28/16 Date of Service:08/13 Report # [id number] Ord Physician: Modesto Guy DO Exam # [id number] Emergency Physician: Modesto Guy DO Exam(s): [id number] CT/CT ABD-PELV W/IV CM CLINICAL DATA: Initial encounter for generalized abdominal pain and rectal bleeding today. EXAM: CT ABDOMEN AND PELVIS WITH CONTRAST TECHNIQUE: Multidetector CT imaging of the abdomen and pelvis was performed using the standard protocol following bolus administration of intravenous contrast. CONTRAST: Contrast 100 cc Isovue 370 COMPARISON: None. FINDINGS: Lower chest: Unremarkable. Hepatobiliary: Tiny hypervascular focus in the posterior hepatic dome is nonspecific. 6 mm hypo enhancing lesion is identified in the inferior right liver. There is no evidence for gallstones, gallbladder wall thickening, or pericholecystic fluid. No intrahepatic or extrahepatic biliary dilation. Pancreas: Main pancreatic duct is diffusely prominent but becomes distended up to 6 mm diameter in the head of the pancreas. No discrete pancreatic mass lesion by CT imaging. Spleen: No splenomegaly. No focal mass lesion. Adrenals/Urinary Tract: No adrenal nodule or mass. 11 mm well-defined low-density lesion right kidney is compatible with a tiny cyst. Left kidney unremarkable. No evidence for hydroureter. The urinary bladder appears normal for the degree of distention. Stomach/Bowel: Stomach is nondistended. No gastric wall thickening. No evidence of outlet obstruction. Duodenum is normally positioned as is the ligament of Treitz. No small bowel wall thickening. No small bowel dilatation. The terminal ileum is normal. The appendix is normal. No gross colonic mass. No colonic wall thickening. No substantial diverticular change. Vascular/Lymphatic: There is abdominal aortic atherosclerosis without aneurysm. There is no gastrohepatic or hepatoduodenal ligament lymphadenopathy. No intraperitoneal or retroperitoneal lymphadenopy. No pelvic sidewall lymphadenopathy. Reproductive: Uterus is surgically absent. There is no adnexal mass. Other: No intraperitoneal free fluid. Musculoskeletal: Bone windows reveal no worrisome lytic or sclerotic osseous lesions. IMPRESSION: 1. No acute findings in the abdomen or pelvis. Next number diffuse distention of the main pancreatic duct becomes dilated in the head of the pancreas. No evidence for pancreatic head mass and there is no associated biliary duct dilatation. MRI of the abdomen without and with contrast may prove helpful to further evaluate as clinically warranted. Alternatively, ERCP may provide additional insight. 2. Tiny hypervascular focus in the dome of the liver is nonspecific but is likely benign, especially in the absence of a cancer history. Electronically Signed By: Emil Teran M.D. On: 06/28/2016 14:15
== END 2016-06-30 18:33 | disposition home or self-care (01) | DRG 378 ==
LOC: ED 11:04 → MPS3 15:10
PROVIDERS: ADMIT Hospitalist; ATTEND Internal Medicine
PROC: 0DBN8ZX Excision of Sigmoid Colon, Via Natural or Artificial Opening Endoscopic, Diagnostic (ICD-10-PCS; principal; 2016-06-30)
PROC: 0D5H8ZZ Destruction of Cecum, Via Natural or Artificial Opening Endoscopic (ICD-10-PCS; 2016-06-30)
PROC: 0W3P8ZZ Control Bleeding in Gastrointestinal Tract, Via Natural or Artificial Opening Endoscopic (ICD-10-PCS; 2016-06-30)
DX: K57.31 Diverticulosis of large intestine without perforation or abscess with bleeding (principal); D62 Acute posthemorrhagic anemia; E11.65 Type 2 diabetes mellitus with hyperglycemia; F17.219 Nicotine dependence, cigarettes, with unspecified nicotine-induced disorders; E78.00 Pure hypercholesterolemia, unspecified; Z88.2 Allergy status to sulfonamides; Z88.0 Allergy status to penicillin; Z79.4 Long term (current) use of insulin; Z79.899 Other long term (current) drug therapy; I95.1 Orthostatic hypotension; F32.9 Major depressive disorder, single episode, unspecified; R93.5 Abnormal findings on diagnostic imaging of other abdominal regions, including retroperitoneum; Q27.33 Arteriovenous malformation of digestive system vessel; K64.8 Other hemorrhoids
CPT/HCPCS: 36415; 45385; 74022; 74177; 80048; 80053; 82043; 82378; 82550; 82947; 82962; 83036; 83690; 84484; 85014; 85018; 85025; 85027; 85610; 85730; 86301; 86850; 86900; 86901; 93005; 96361; 96365; 96372; 96375; 99285; 99406; A9698; J1815; J1956; J2250; J2405; J3010; J3490; J7040; J7060; J7070